=== PATIENT | male | born 1955 | race Caucasian/White ===

== ENCOUNTER 2019-05-06 10:23 | Day surgery (SDC) | payer BC ==
[~2019-05-06 10:23] MED LIST: Metoclopramide 10 MG/2 ML SDV IV PRN
[2019-05-06] MEDS: Sodium Chloride 0.9% 1,000 ML IV SCH (11:11)
[2019-05-06] MEDS ORDERED: Propofol 200 MG/20 ML SDV ONE (11:20)
[2019-05-06 11:51] VITALS: BP 123/80; PULSE 69
--- NOTE | 2019-05-06 16:59 | OR ---
DATE OF OPERATION: 05/06/2019 SURGEON: Harvey Somers MD PREOPERATIVE DIAGNOSIS: Surveillance colonoscopy. POSTOPERATIVE DIAGNOSIS: Surveillance colonoscopy. PROCEDURE: Colonoscopy. ANESTHESIA: MAC. ESTIMATED BLOOD LOSS: None. COMPLICATIONS: None. INDICATION FOR THE PROCEDURE: The patient is a 64-year-old male who last had a colonoscopy 7 years ago, was found to have a polyp at that time. He is here today for a routine surveillance colonoscopy. Otherwise, denies any change in bowel habits. DESCRIPTION OF PROCEDURE: Informed consent was obtained from the patient. The patient was taken to the operating room and placed on table in left lateral decubitus position. Monitored anesthesia care was administered. Digital rectal exam performed and was normal. Colonoscope then advanced through the anus directed toward the cecum. Cecum was reached and identified by appendiceal orifice and ileocecal valve. Colonoscope then slowly withdrawn. No polyps, no masses. No areas of ischemia or inflammation identified. Retroflexion performed in the rectum showing a hypertrophic anal papilla, which has been symptomatic for the patient. FINDINGS: Hypertrophic anal papilla. We will set up OR time in the future if the patient desires for surgical excision. Otherwise, we would recommend repeat surveillance colonoscopy in 5 years. JOSHUA/JOYCE /[id number]
== END 2019-05-06 12:45 | disposition home or self-care (01) ==
LOC: LB.SDS 10:23
PROVIDERS: ATTEND Surgery
DX: Z12.11 Encounter for screening for malignant neoplasm of colon (principal); K62.89 Other specified diseases of anus and rectum; Z86.010 Personal history of colon polyps
CPT/HCPCS: G0121; J2704; J7030

== ENCOUNTER 2021-10-19 18:07 | Inpatient (IN) | payer OTHER, MEDICARE ==
[2021-10-19] MEDS ORDERED: HYDROmorphone 2 MG/ML Syringe IVPUSH ONE ×2 (18:26→19:01)
[2021-10-19] MEDS ORDERED: Ondansetron 4 MG/2 ML SDV IVPUSH ONE (18:27)
[2021-10-19 18:46] LABS: ESTIMATED GFR 88 mL/min (>60)
[2021-10-19] MEDS ORDERED: Ketorolac 30 MG/ML SDV IVPUSH ONE (19:02)
[2021-10-19] MEDS ORDERED: Sodium Chloride 0.9% 50 ML SDV FLUSH ONE (20:35)
[2021-10-19] MEDS ORDERED: Iopamidol 755 Mg/ML 100 ML Bottle IV SCH (20:45)
[2021-10-19] MEDS: Enoxaparin 100 MG/1 ML Syringe SUBCUT SCH (21:56)
[2021-10-19] MEDS ORDERED: Ondansetron 4 MG/2 ML SDV IV PRN (22:24)
[2021-10-19] MEDS ORDERED: Sodium Chloride 0.9% 10 ML Syringe FLUSH PRN (22:24)
[2021-10-19] MEDS: cefTRIAXone 1 GM in Sodium Chloride 0.9% 50 ML IV SCH (23:26)
[2021-10-20] MEDS: HYDROmorphone 2 MG/ML Syringe IV PRN ×4 (08:46→20:27)
[2021-10-20] MEDS: Enoxaparin 100 MG/1 ML Syringe SUBCUT SCH ×2 (08:46→21:49)
[2021-10-20 10:01] LABS: TROPONIN I HIGH SENSITIVITY 8.6 pg/ml (<=60.4)
[2021-10-20] MEDS ORDERED: Bisacodyl 5 MG Tab ONE (14:39)
[2021-10-20] MEDS ORDERED: Bisacodyl 5 MG Tab PO PRN (18:01)
[2021-10-20] MEDS: cefTRIAXone 1 GM in Sodium Chloride 0.9% 50 ML IV SCH (21:49)
[2021-10-21] MEDS: HYDROmorphone 2 MG/ML Syringe IV PRN ×4 (06:51→18:35)
[2021-10-21] MEDS: Enoxaparin 100 MG/1 ML Syringe SUBCUT SCH ×2 (09:49→21:59)
[2021-10-21] MEDS: cefTRIAXone 1 GM in Sodium Chloride 0.9% 50 ML IV SCH (22:05)
[2021-10-22] MEDS: Enoxaparin 100 MG/1 ML Syringe SUBCUT SCH ×2 (10:02→21:48)
[2021-10-22] MEDS: cefTRIAXone 1 GM in Sodium Chloride 0.9% 50 ML IV SCH (21:48)
[2021-10-23] MEDS: Enoxaparin 100 MG/1 ML Syringe SUBCUT SCH (09:19)
[2021-10-23 10:48] VITALS: BP 141/91; PULSE 84
== END 2021-10-23 10:43 | disposition home or self-care (01) | DRG 176 ==
LOC: LB.ED 18:07 → LB.MS 22:19 → UNDOADMIN 23:16 → LB.MS 23:16
PROVIDERS: ADMIT Family Medicine; ATTEND Family Medicine
DX: I26.99 Other pulmonary embolism without acute cor pulmonale (principal); Z20.822 Contact with and (suspected) exposure to COVID-19; Z88.0 Allergy status to penicillin; Z79.899 Other long term (current) drug therapy
CPT/HCPCS: 36415; 71250; 71260; 74176; 80048; 80053; 82550; 84484; 85025; 85610; 85730; 93005; 93010; 96372; 96374; 96375; 96376; 99232; 99238; 99285-25; A9270-GY; J0696; J1170; J1650; J1885; J3490; Q9967; U0002

== ENCOUNTER 2022-07-04 20:45 | Emergency (ER) | payer OTHER ==
[2022-07-04] MEDS ORDERED: Sodium Chloride 0.9% 1,000 ML IV ONE (20:55)
[2022-07-04 21:26] LABS: BASOPHILS ABSOLUTE AUTO 0.02 K/uL (0.02-0.10); BASOPHILS PERCENT AUTO 0.2 % (0.0-0.5); EOSINOPHILS ABSOLUTE AUTO 0.08 K/uL (0.04-0.40); HEMATOCRIT 44.9 % (40.0-54.0); HEMOGLOBIN 15.1 g/dL (13.0-18.0); LYMPHOCYTES ABSOLUTE AUTO 3.32 K/uL (1.50-4.00); MEAN CORPUSCULAR HEMOGLOBIN 29.8 pg (27.0-32.0); MEAN CORPUSCULAR HGB CONC 33.6 g/dL (31.0-35.0); MEAN CORPUSCULAR VOLUME 89 fL (76-96); MEAN PLATELET VOLUME 8.9 fL (6.0-10.0); MONOCYTES ABSOLUTE AUTO 0.67 K/uL (0.20-0.80); MONOCYTES PERCENT AUTO 8.1 % (3.0-10.0); NEUTROPHILS ABSOLUTE AUTO 4.21 K/uL (2.00-7.50); NEUTROPHILS PERCENT AUTO 50.7 % (45.0-70.0); PLATELET COUNT,PLT 256 K/uL (150-400); RED BLOOD CELL COUNT 5.07 M/uL (4.50-6.50); RED CELL DISTRIBUTION WIDTH 14.1 % (11.0-16.0); WHITE BLOOD CELL COUNT,WBC 8.3 K/uL (4.0-11.0)
[2022-07-04 21:32] LABS: ANION GAP 14.7 mmol/L (5.0-15.0); CALCIUM 8.4 mg/dL (8.5-10.1); CARBON DIOXIDE,CO2 28.3 mmol/L (21.0-32.0); CREATININE 1.1 mg/dL (0.70-1.30); EST CRCL DRUG DOSING (CG) 51.02 mL/min
[2022-07-04 23:16] VITALS: BP 152/70; PULSE 91
== END 2022-07-04 22:30 ==
LOC: LB.ED 20:45
DX: S00.81XA Abrasion of other part of head, initial encounter (principal); V18.0XXA Pedal cycle driver injured in noncollision transport accident in nontraffic accident, initial encounter
CPT/HCPCS: 36415; 70450; 72125; 80048; 80307; 85025; 96360; 96361; 99285; J7030; A0425; A0429

== ENCOUNTER 2023-05-15 10:26 | Day surgery (SDC) | payer OTHER, MEDICARE ==
[2023-05-15] MEDS: Sodium Chloride 0.9% 1,000 ML IV SCH (11:12)
[2023-05-15] MEDS ORDERED: Propofol 200 MG/20 ML SDV ONE (13:25)
[2023-05-15 13:45] VITALS: BP 140/86; PULSE 85
== END 2023-05-15 14:16 | disposition home or self-care (01) ==
LOC: LB.SDS 10:26
PROVIDERS: ATTEND Surgery
DX: K20.90 Esophagitis, unspecified without bleeding (principal); E78.5 Hyperlipidemia, unspecified; F41.9 Anxiety disorder, unspecified; Z88.0 Allergy status to penicillin
CPT/HCPCS: J2704; J7030

== ENCOUNTER 2024-12-30 10:05 | Day surgery (SDC) | payer OTHER ==
[2024-12-30] MEDS ORDERED: Propofol 200 MG/20 ML SDV ONE (13:00)
[2024-12-30 13:20] VITALS: BP 154/85; PULSE 80
== END 2024-12-30 14:07 | disposition home or self-care (01) ==
LOC: LB.SDS 10:05
PROVIDERS: ATTEND Surgery
DX: Z12.11 Encounter for screening for malignant neoplasm of colon (principal); K63.5 Polyp of colon; K21.9 Gastro-esophageal reflux disease without esophagitis; Z88.0 Allergy status to penicillin; Z79.01 Long term (current) use of anticoagulants; Z91.041 Radiographic dye allergy status; Z79.899 Other long term (current) drug therapy
CPT/HCPCS: 45385; J2704; J7030